=== PATIENT | female | born 2000 | race Hispanic/Latino ===

== ENCOUNTER 2020-04-04 16:45 | Emergency (ER) | payer OTHER ==
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
[2020-04-04 23:21] LABS: Blood Urea Nitrogen 11 mg/dL (7-17); Calcium 9.7 mg/dL (8.4-10.2); Hemolysis Index 155
[2020-04-04 23:38] LABS: BUN/Creatinine Ratio 18
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
[2020-04-05 02:43] VITALS: BP 118/70
== END 2020-04-05 02:17 | disposition home or self-care (01) ==
LOC: ED 16:45
DX: S30.1XXA Contusion of abdominal wall, initial encounter (principal); V89.2XXA Person injured in unspecified motor-vehicle accident, traffic, initial encounter; Y93.89 Activity, other specified; Y92.410 Unspecified street and highway as the place of occurrence of the external cause; Y99.8 Other external cause status
CPT/HCPCS: 36415; 74177; 80048; 84702; 99284; Q9967